=== PATIENT | male | born 1985 | race African-American/Black ===

== ENCOUNTER 2017-04-01 18:29 | Emergency (ER) | payer SELFPAY ==
[2017-04-01] MEDS ORDERED: Ibuprofen 800 MG TAB ONE (21:11)
== END 2017-04-01 21:19 | disposition home or self-care (01) ==
LOC: ERS 18:29
DX: S16.1XXA Strain of muscle, fascia and tendon at neck level, initial encounter (principal); V63.5XXA Driver of heavy transport vehicle injured in collision with car, pick-up truck or van in traffic accident, initial encounter
CPT/HCPCS: 99284